=== PATIENT | female | born 1990 | race Hispanic/Latino ===

== ENCOUNTER 2023-02-19 22:33 | Emergency (ER) | payer SELFPAY ==
[2023-02-19] MEDS ORDERED: Lidocaine Viscous Sol 2% 15 ml UD Cup ONE (23:12)
[2023-02-19] MEDS ORDERED: Mag-Al 1200 mg/1200 mg/30 ML UDCUP ONE (23:12)
[2023-02-19 23:42] LABS: #Basophils 0.1 thou/uL (0.0-0.2); #Eosinphils 0.3 thou/uL (0.0-0.7); #Monocytes 0.9 thou/uL (0.11-0.59); #Neutrophils 12.3 thou/uL (1.40-6.50); %Basophils 0.3 % (0.0-1.0); %Eosinophils 1.8 % (0.0-10.0); %Lymphocytes 16.6 % (21.0-51.0); %Monocytes 5.4 % (0.0-10.0); %Neutrophils 75.4 % (42.0-75.0); Hemoglobin 12.8 g/dL (12.0-16.0); Mean Corpuscular HGB CONC 32.8 g/dL (32.0-36.0); Mean Corpuscular Hemoglobin 27.5 pg (27.0-31.0); Mean Corpuscular Volume 83.7 fl (78.0-98.0); Mean Platelet Volume 10.9 fL (7.4-10.4); Platelet Count 268 10x3/uL (130-400); RBC Distribution Width 13.1 % (11.5-14.5); Red Blood Cell (RBC) Count 4.66 mill/uL (4.20-5.40); White Blood Cell (WBC) Count 16.3 10x3/uL (4.8-10.8)
[2023-02-19 23:56] LABS: BHCG - Serum Negative (NEGATIVE); Pregs Control Background? CLEAR/WHITE (CLR/WHITE); Pregs Control Bar Appear? YES (CONTROL BAR)
[2023-02-20 00:06] LABS: ALT (SGPT) 32 U/L (8-55); AST (SGOT) 18 U/L (5-34); Albumin 4.1 g/dL (3.5-5.0); Alkaline Phosphatase 79 U/L (40-110); Anion Gap 14 mmol/L (10-20); BUN (Urea Nitrogen) 8 mg/dL (7.0-18.7); Bilirubin, Total 0.3 mg/dL (0.2-1.2); Calc. Creatinine Clearance 0 mL/min (70-130); Calcium 8.8 mg/dL (7.8-10.44); Carbon Dioxide 22 mmol/L (22-29); Chloride 103 mmol/L (98-107); Estimated GFR 105; Glucose 119 mg/dL (70-105); Lipase 24 U/L (8-78); Potassium 4.1 mmol/L (3.5-5.1); Protein, Total 7.1 g/dL (6.0-8.3); Sodium 135 mmol/L (136-145)
[2023-02-20] MEDS ORDERED: Morphine 4 MG/ML VIAL ONE (01:39)
[2023-02-20] MEDS ORDERED: Ondansetron PF 4 MG/2 ML Vial ONE (01:39)
== END 2023-02-20 03:51 | disposition home or self-care (01) ==
LOC: ERS 22:33
DX: K80.50 Calculus of bile duct without cholangitis or cholecystitis without obstruction (principal)
CPT/HCPCS: 36415; 76705; 80053; 83690; 84703; 85025; 96374; 96375; J2270; J2405